=== PATIENT | male | born 1970 | race Caucasian/White ===

== ENCOUNTER 2016-11-23 01:26 | Observation (INO) | payer MEDICAID ==
[2016-11-23] MEDS ORDERED: NS 1,000 ML IV ONE ×2 (01:36→02:44)
[2016-11-23] MEDS ORDERED: ONDANSETRON 4 MG/2 ML VIAL IVP ONE (01:36)
[2016-11-23] MEDS ORDERED: HYDROmorphONE/DILAUDID 1 MG/ML SYR IVP ONE ×3 (01:36→02:43)
--- NOTE | 2016-11-23 01:38 | CPEKG ---
Heart Rate: 76 RR Interval: 789 P-R Interval: 189 QRSD Interval: 104 QT Interval: 388 QTC Interval: 437 P [place]: 0 QRS [place]: 76 T Wave [place]: 42 EKG Severity - BORDERLINE ECG - EKG Impression: SINUS RHYTHM EKG Impression: ATRIAL PREMATURE COMPLEX EKG Impression: PROBABLE LEFT ATRIAL ABNORMALITY Electronically Signed By: Chad Navas 23-Nov-2016 06:23:18
[2016-11-23] MEDS ORDERED: IOPAMIDOL (ISOVUE-300) 100 ML BTL ONE (01:39)
--- NOTE | 2016-11-23 01:40 | EDPHY ---
H & P HPI/ROS: HPI CHIEF COMPLAINT: Abdominal pain, nausea, vomiting HISTORY OF PRESENT ILLNESS: This patient is a 45-year-old male he presents emergency room by EMS for 30 minutes of abdominal pain prior to arrival. Patient reports to me that he developed sudden-onset 10 of 10 epigastric and left upper quadrant abdominal pain. He states that was trying to go to sleep. He came all the sudden caused him to have nausea vomiting. He does have a history of kidney stones but this feels different. He denies back pain. Denies trauma. States he did eat pizza tonight. He denies diarrhea fever he denies chest pain shortness of breath. States he has 10/10 pain located epigastric left upper quadrant. He has associated nausea vomiting with this. Of note this patient is writhing in pain and screaming. Somewhat difficult to get an accurate history review of systems at this time. Additionally this patient tells me he stopped taking his Valium 5 days ago. He tells me he has not had any withdrawal symptoms. The symptoms started suddenly tonight. Past Medical History: Kidney stones Past Surgical History: Left inguinal hernia injury Social History: Smokes tobacco, denies alcohol or other illicit drugs Family History: Noncontributory. ROS REVIEW OF SYSTEMS: Limited due to this patient's screaming and writhing in pain. Exam Constitutional screaming, writhing, triage nursing summary reviewed, vital signs reviewed, awake/alert. Vital signs are stable. No tachycardia. Eyes normal conjunctivae and sclera, EOMI, PERRLA. HENT normal inspection, atraumatic, moist mucus membranes, no epistaxis, neck supple/ no meningismus, no raccoon eyes. Respiratory clear to auscultation bilaterally, normal breath sounds, no respiratory distress, no wheezing. Cardiovascular rate normal, regular rhythm, no murmur, no edema, distal pulses normal. Gastrointestinal mmod tenderness palpation epigastric and left upper quadrant, no rebound, no guarding, normal bowel sounds, no distension, no pulsatile mass. Genitourinary no CVA tenderness. Musculoskeletal no midline vertebral tenderness, full range of motion, no calf swelling, no tenderness of extremities, no meningismus, good pulses, neurovascularly intact. Skin pink, warm, & dry, no rash, skin atraumatic. Neurologic awake, alert and oriented x 3, AAOx3, moves all 4 extremities equally, motor intact, sensory intact, CN II-XII intact, normal cerebellar, normal vision, normal speech. Psychiatric normal mood/affect. Heme/Lymph/Immune no lymphadenopathy. Differential diagnosis includes but is not limited to and in no particular order : Bowel obstruction, appendicitis, gallbladder disease, diverticulitis, colitis , enteritis, perforated viscus, gastritis, GERD, esophagitis, urinary tract infection, pyelonephritis, kidney stones Medical Decision Making: IV establishment with IV fluid bolus, EKG, troponin, abdominal blood work including lactic acid, chest x-ray, CT abdomen pelvis with IV contrast. IV Dilaudid for pain control, IV Zofran for nausea. Re-evaluation: EKG interpretation by me on record in [email or web address] system. Impression time of EKG 1:36 a.m., this is sinus rhythm rate of 76 some motion artifact seen on EKG but I do not appreciate anything acute like an ST elevation. 0240AM: Patient is back from CT scan. I did reassess him he still complains of abdominal pain but improved. Patient CT scan called to me by Dr. Grossman shows SBO. I have updated the patient on his CT scan results. He does have elevated lactate 4.3 will repeat repeating this after fluid resuscitation. 0241AM: I have consulted Dr. Adam with general surgery due to CT scan findings of SBO. Plan will be admission. IV fluids, IV pain control, Repeat Lactic. Admission. 0258AM: Dr. Rao's has seen evaluated the patient. Plan for admission. IV fluids for dehydration given elevated lactic acid. He does have an elevated lactic acid without evidence of sepsis. He has an elevated lactic acid due to dehydration. He has 2nd lactic acid is pending. He has received 2 L of fluid. He is working on his 3rd L fluid. Most likely elevated due to dehydration nausea vomiting. He is hemodynamically stable. Dr. Adam to admit. Source: Patient, EMS Constitutional: Initial Vital Signs Temperature (C) 36.3 C 11/23/16 01:32 Heart Rate 79 11/23/16 01:32 Respiratory Rate 28 H 11/23/16 01:32 Blood Pressure 121/82 H 11/23/16 01:32 O2 Sat (%) 100 11/23/16 01:32 O2 Delivery Mode Nasal Cannula O2 (L/minute) 2 Allergies/Adverse Reactions: codeine Allergy (Verified 11/23/16 01:38) Home Medications: Medication Instructions Recorded Diazepam [Valium 10 MG (*)] 10 mg PO DAILY 11/23/16 oxyCODONE CR [Oxycontin] 15 mg PO TID 11/23/16 Medical Decision Making - Data Points Laboratory Results: Laboratory Results 11/23/16 01:30 11/23/16 01:30 11/23/16 11/23/16 11/23/16 02:40 01:50 01:50 WBC RBC Hgb Hct MCV MCH MCHC RDW Plt Count MPV Neut % (Auto) Lymph % (Auto) [place] % (Auto) Eos % (Auto) Baso % (Auto) Nucleat RBC Rel Count Absolute Neuts (auto) Absolute Lymphs (auto) Absolute Monos (auto) Absolute Eos (auto) Absolute Basos (auto) Absolute Nucleated RBC Immature Gran % Immature Gran # PT INR APTT VBG Lactic Acid 4.3 mmol/L H mmol/L (0.7-2.1) Sodium Potassium Chloride Carbon Dioxide Anion Gap BUN Creatinine Estimated GFR Glucose Calcium Phosphorus Total Bilirubin Conjugated Bilirubin Unconjugated Bilirubin AST ALT Alkaline Phosphatase Creatine Kinase 208 IU/L IU/L (0-224) Troponin I Total Protein Albumin Lipase Urine Color YELLOW Urine Appearance HAZY Urine pH 8.0 H (5.0-7.5) Ur Specific [place] > 1.035 H (1.002-1.030) Urine Protein NEGATIVE (NEGATIVE) Urine Ketones TRACE H (NEGATIVE) Urine Blood NEGATIVE (NEGATIVE) Urine Nitrate NEGATIVE (NEGATIVE) Urine Bilirubin NEGATIVE (NEGATIVE) Urine Urobilinogen NEGATIVE EU EU (0.2-1.0) Ur Leukocyte Esterase NEGATIVE (NEGATIVE) Urine Glucose NEGATIVE (NEGATIVE) Urine Opiates Screen NON-NEGATIVE H (NEGATIVE) Urine Barbiturates NEGATIVE (NEGATIVE) Ur Phencyclidine Scrn NEGATIVE (NEGATIVE) Ur Amphetamine Screen NEGATIVE (NEGATIVE) U Benzodiazepines Scrn NON-NEGATIVE H (NEGATIVE) Urine Cocaine Screen NEGATIVE (NEGATIVE) U Marijuana (THC) Screen NON-NEGATIVE H (NEGATIVE) Ethyl Alcohol 11/23/16 11/23/16 11/23/16 01:30 01:30 01:30 WBC 11.74 10^3/uL H 10^3/uL (3.80-9.50) RBC 5.02 10^6/uL 10^6/uL (4.40-6.38) Hgb 15.6 g/dL g/dL (13.7-17.5) Hct 44.4 % % (40.0-51.0) MCV 88.4 fL fL (81.5-99.8) MCH 31.1 pg pg (27.9-34.1) MCHC 35.1 g/dL g/dL (32.4-36.7) RDW 13.2 % % (11.5-15.2) Plt Count 228 10^3/uL 10^3/uL (150-400) MPV 10.9 fL fL (8.7-11.7) Neut % (Auto) 52.8 % % (39.3-74.2) Lymph % (Auto) 39.8 % % (15.0-45.0) [place] % (Auto) 5.6 % % (4.5-13.0) Eos % (Auto) 0.8 % % (0.6-7.6) Baso % (Auto) 0.6 % % (0.3-1.7) Nucleat RBC Rel Count 0.0 % % (0.0-0.2) Absolute Neuts (auto) 6.20 10^3/uL 10^3/uL (1.70-6.50) Absolute Lymphs (auto) 4.67 10^3/uL H 10^3/uL (1.00-3.00) Absolute Monos (auto) 0.66 10^3/uL 10^3/uL (0.30-0.80) Absolute Eos (auto) 0.09 10^3/uL 10^3/uL (0.03-0.40) Absolute Basos (auto) 0.07 10^3/uL 10^3/uL (0.02-0.10) Absolute Nucleated RBC 0.00 10^3/uL 10^3/uL (0-0.01) Immature Gran % 0.4 % % (0.0-1.1) Immature Gran # 0.05 10^3/uL 10^3/uL (0.00-0.10) PT 13.2 SEC SEC (12.0-15.0) INR 1.01 (0.83-1.16) APTT 24.2 SEC SEC (23.0-38.0) VBG Lactic Acid Sodium 142 mEq/L mEq/L (134-144) Potassium 3.7 mEq/L mEq/L (3.5-5.2) Chloride 101 mEq/L mEq/L (97-110) Carbon Dioxide 23 mEq/l mEq/l (22-31) Anion Gap 18 mEq/L H mEq/L (8-16) BUN 19 mg/dL mg/dL (7-23) Creatinine 1.0 mg/dL mg/dL (0.7-1.3) Estimated GFR > 60 Glucose 127 mg/dL H mg/dL (70-100) Calcium 10.8 mg/dL H mg/dL (8.5-10.4) Phosphorus 2.8 mg/dL mg/dL (2.5-4.5) Total Bilirubin 0.5 mg/dL mg/dL (0.1-1.4) Conjugated Bilirubin 0.3 mg/dL mg/dL (0.0-0.5) Unconjugated Bilirubin 0.2 mg/dL mg/dL (0.0-1.1) AST 30 IU/L IU/L (17-59) ALT 38 IU/L IU/L (21-72) Alkaline Phosphatase 82 IU/L IU/L (38-126) Creatine Kinase Troponin I < 0.012 ng/mL ng/mL (0.000-0.034) Total Protein 7.8 g/dL g/dL (6.3-8.2) Albumin 4.7 g/dL g/dL (3.5-5.0) Lipase 113 IU/L IU/L (23-300) Urine Color Urine Appearance Urine pH Ur Specific [place] Urine Protein Urine Ketones Urine Blood Urine Nitrate Urine Bilirubin Urine Urobilinogen Ur Leukocyte Esterase Urine Glucose Urine Opiates Screen Urine Barbiturates Ur Phencyclidine Scrn Ur Amphetamine Screen U Benzodiazepines Scrn Urine Cocaine Screen U Marijuana (THC) Screen Ethyl Alcohol < 10 mg/dL mg/dL (0-10) Medications Given: Discontinued Medications Haloperidol Lactate (Haldol Injection) 2.5 mg IVP EDNOW ONE Stop: 11/23/16 01:50 Last Admin: 11/23/16 01:52 Dose: 2.5 mg Hydromorphone HCl (Dilaudid) 0.5 mg IVP EDNOW ONE Stop: 11/23/16 01:37 Last Admin: 11/23/16 01:43 Dose: 0.5 mg Hydromorphone HCl (Dilaudid) 0.5 mg IVP EDNOW ONE Stop: 11/23/16 02:04 Last Admin: 11/23/16 02:07 Dose: 0.5 mg Hydromorphone HCl (Dilaudid) 0.5 mg IVP EDNOW ONE Stop: 11/23/16 02:44 Last Admin: 11/23/16 03:05 Dose: 0.5 mg Sodium Chloride (Ns) 1,000 mls @ 0 mls/hr IV EDNOW ONE; Wide Open PRN Reason: Protocol Stop: 11/23/16 01:37 Last Admin: 11/23/16 01:44 Dose: 1,000 mls Sodium Chloride (Ns) 2,000 mls @ 0 mls/hr IV ONCE ONE PRN Reason: Wide Open Stop: 11/23/16 02:04 Last Admin: 11/23/16 02:00 Dose: 2,000 mls Ondansetron HCl (Zofran) 4 mg IVP EDNOW ONE Stop: 11/23/16 01:37 Last Admin: 11/23/16 01:44 Dose: 4 mg Departure - Departure Disposition: [facility] Inpatient Acute Clinical Impression: SBO (small bowel obstruction), Dehydration Condition: Fair
[2016-11-23 01:46] LABS: % IMMATURE GRANULYOCYTES 0.4 % (0.0-1.1); ABSOLUTE IMMATURE GRANULOCYTES 0.05 10^3/uL (0.00-0.10); ADD DIFF? NO; ADD MORPH? NO; ADD SCAN? NO; ATYPICAL LYMPHOCYTE FLAG 0 (0-99); FRAGMENT RBC FLAG 0 (0-99); HEMATOCRIT 44.4 % (40.0-51.0); HEMOGLOBIN 15.6 g/dL (13.7-17.5); LEFT SHIFT FLG 0 (0-99); LIPEMIA HEMOLYSIS FLAG 90 (0-99); MEAN CELL HEMOGLOBIN 31.1 pg (27.9-34.1); MEAN CELL HEMOGLOBIN CONCENTR. 35.1 g/dL (32.4-36.7); MEAN CELL VOLUME 88.4 fL (81.5-99.8); MEAN PLATELET VOLUME 10.9 fL (8.7-11.7); PLATELET CLUMPS FLAG 10 (0-99); PLATELET COUNT 228 10^3/uL (150-400); RED BLOOD CELL COUNT 5.02 10^6/uL (4.40-6.38); RED CELL DISTRIBUTION WIDTH 13.2 % (11.5-15.2)
[2016-11-23] MEDS ORDERED: HALOPERIDOL LACT 5 MG/ML INJ ONE (01:48)
[2016-11-23] MEDS ORDERED: HALOPERIDOL LACT 5 MG/ML INJ IVP ONE (01:49)
[2016-11-23 01:52] LABS: INR 1.01 (0.83-1.16); PROTIME(PATIENT) 13.2 SEC (12.0-15.0)
[2016-11-23 01:53] LABS: ALANINE AMINOTRANSFERASE 38 IU/L (21-72); ALBUMIN 4.7 g/dL (3.5-5.0); ALKALINE PHOSPHATASE 82 IU/L (38-126); ANION GAP 18 mEq/L (8-16); APTT 24.2 SEC (23.0-38.0); ASPARTATE AMINOTRANSFERASE 30 IU/L (17-59); BILIRUBIN,TOTAL 0.5 mg/dL (0.1-1.4); BILIRUBIN-CONJUGATED 0.3 mg/dL (0.0-0.5); BILIRUBIN-UNCONJUGATED 0.2 mg/dL (0.0-1.1); CALCIUM 10.8 mg/dL (8.5-10.4); CARBON DIOXIDE 23 mEq/l (22-31); CHLORIDE 101 mEq/L (97-110); ETHANOL SERUM < 10 mg/dL (0-10); GLOMERULAR FILTRATION RATE > 60; GLUCOSE 127 mg/dL (70-100); POTASSIUM 3.7 mEq/L (3.5-5.2); SODIUM 142 mEq/L (134-144); TOTAL PROTEIN 7.8 g/dL (6.3-8.2)
[2016-11-23] MEDS ORDERED: HYDROmorphONE/DILAUDID 1 MG/ML SYR ONE (02:02)
[2016-11-23 02:03] LABS: TROPONIN I < 0.012 ng/mL (0.000-0.034)
[2016-11-23] MEDS ORDERED: NS 2,000 ML IV ONE (02:03)
[2016-11-23 02:53] LABS: COLOR YELLOW; LEUKOCYTE ESTERASE,URINE NEGATIVE (NEGATIVE); NITRITE,URINE NEGATIVE (NEGATIVE)
--- NOTE | 2016-11-23 02:57 | PDCONSULT ---
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 CT showed possible SBO and surgical consult was requested. He reports sudden onset of pain while he was sleeping followed by vomiting. He has had a BM since the onset of pain. He denies melena, hematemesis, prior attacks of abd pain. He has had chronic low back pain since an injury 5 years ago and had an appointment scheduled with a "spine surgeon" in the morning. He takes Oxycontin and Valium daily and uses marijuana for pain control. He reports some sort of abdominal wall infection several years ago that required placement of a drain. PMH: meds: oxycontin/valium allergies: codeine denies IVDA SH: lives in [place] FH: [place] ROS: pertinent negatives per HPI PE: P 60 BP110/78 R 18 T 36.3 thin middle aged male agitated and unable to cooperate with exam HEENT: scleral injection/no adenopathy Lungs: clear CVS: RRR without murmurs Abd: flat, soft with normoactive bowel sounds, LLQ scar 1cm, no hernias diffuse mild tenderness without guarding rectal: pt refused ext: multiple tatoos, no edema venous lactate #1 4.3 #2 1.5 wbc 11.4 Ca++ 10.8 glucose 120 lytes o.k UA SG 1.035 CT: non-specific mild dilatation small bowel, gas and stool large bowel, no free air, mesenteric vessels well opacified with contrast/no signs of volvulus no significant fluid Imp: Abd pain-not clinically consistent with SBO. Differential includes: partial SBO, acute food poisoning, gastroenteritis, acute narcotic withdrawal, THC induced hyperemesis. Rec: Admit observation, SBFT, comfort measures, IV fluids, NPO-will hold off on NGT for now/hospitalist consult if not improved Debbi Adam MD, FACS
[2016-11-23] MEDS ORDERED: HYDROmorphONE/DILAUDID 1 MG/ML SYR IVP PRN (03:02)
[2016-11-23] MEDS ORDERED: DIAZEPAM 10 MG/2 ML SYR IVP ONE ×2 (03:03→03:11)
[2016-11-23] MEDS ORDERED: DIAZEPAM 10 MG/2 ML SYR ONE (03:08)
--- NOTE | 2016-11-23 03:10 | CPEKG ---
Heart Rate: 52 RR Interval: 1154 P-R Interval: 264 QRSD Interval: 102 QT Interval: 416 QTC Interval: 387 P [place]: 71 QRS [place]: 75 T Wave [place]: 47 EKG Severity - ABNORMAL ECG - EKG Impression: SINUS RHYTHM EKG Impression: FIRST DEGREE AV BLOCK Electronically Signed By: Chad Navas 23-Nov-2016 06:23:18
[2016-11-23 03:59] VITALS: RESP 16
[2016-11-23 07:47] LABS: HEMATOCRIT 37.4 % (40.0-51.0); HEMOGLOBIN 12.9 g/dL (13.7-17.5); MEAN CELL HEMOGLOBIN CONCENTR. 34.5 g/dL (32.4-36.7); MEAN CELL VOLUME 89.9 fL (81.5-99.8); RED BLOOD CELL COUNT 4.16 10^6/uL (4.40-6.38); RED CELL DISTRIBUTION WIDTH 13.1 % (11.5-15.2)
--- NOTE | 2016-11-23 07:54 | SOAPPROG ---
Downtime Inpatient MD Late Entry SOAP Note: Mr. Mehta started feeling better after admission and reports no more abdominal pain this morning. He has had no emesis. He remains Afebrile with stable VS. His exam reveals him to be calm and appropriate. Abd: soft, flat, non-tender with normal bowel sounds Imp: no clinical signs of SBO/likely hyperemesis related to pain meds/THC and possible withdrawal. He has an appointment this morning with a spine surgeon in [place] and could be discharged if he tolerates breakfast. Debbi Adam MD, FACS
[2016-11-23 08:03] LABS: CALCIUM 8.8 mg/dL (8.5-10.4); CREATININE 0.8 mg/dL (0.7-1.3)
[2016-11-23 08:09] LABS: PTH INTACT NO MINERALS 63.5 pg/ml (10.8-79.4)
[2016-11-23 08:48] VITALS: BP 113/59; PULSE 59; TEMP 98.1; O2SAT 98
== END 2016-11-23 09:28 | disposition home or self-care (01) ==
LOC: INTOOBSV 02:42 → F3E 03:38
PROVIDERS: ADMIT Surgery; ATTEND Surgery
DX: R10.9 Unspecified abdominal pain (principal); R11.2 Nausea with vomiting, unspecified; E86.0 Dehydration; F17.200 Nicotine dependence, unspecified, uncomplicated; Z87.442 Personal history of urinary calculi; M54.5 Low back pain; F12.90 Cannabis use, unspecified, uncomplicated; Z79.891 Long term (current) use of opiate analgesic
CPT/HCPCS: 71020; 74177; 93005; G0378; 80305; 96374; G0480; J1170; J2405; Q9967